=== PATIENT | female | born 1990 | race Hispanic/Latino ===

== ENCOUNTER 2021-02-02 12:41 | Emergency (ER) | payer SELFPAY ==
[~2021-02-02] VITALS: Ht 152.4 cm; Wt 68.0 kg
[2021-02-02 14:25] VITALS: BP 121/75
== END 2021-02-02 17:33 | disposition home or self-care (01) ==
LOC: EDH 12:41
DX: J10.1 Influenza due to other identified influenza virus with other respiratory manifestations (principal); Z20.822 Contact with and (suspected) exposure to COVID-19
CPT/HCPCS: 87635; 87804 ×2; 99283; C9803